=== PATIENT | male | born 1965 | race Asian ===

== ENCOUNTER 2020-09-12 09:22 | Emergency (ER) | payer OTHER, SELFPAY ==
[2020-09-12] VITALS (18 sets, daily range): BP systolic 117–160; BP diastolic 49–89; PULSE 51–88; RESP 16–36; TEMP 37; O2SAT 92–99; BMI 34.9
--- NOTE | 2020-09-12 09:52 | DI.RAD.S_ITS ---
PROCEDURE: XR CHEST 1V INDICATIONS: chest pain TECHNIQUE: One view of the chest was acquired. COMPARISON: None. FINDINGS: Surgical changes and devices: None. Lungs and pleura: Lungs are clear. No pleural effusions or pneumothorax. Mediastinum: Mediastinal contours appear normal. Heart size is normal. Bones and chest wall: No suspicious bony lesions. Overlying soft tissues appear unremarkable. IMPRESSION: No acute cardiopulmonary abnormalities or focal airspace disease. Dictated by: Dario Burton M.D. on 09/12/2020 at 10:14 Approved by: Dario Burton M.D. on 09/12/2020 at 10:15
[2020-09-12 09:59] LABS: INR 1.1 (0.9-1.3); Prothrombin Time 12.4 SECONDS (10.1-12.7)
--- NOTE | 2020-09-12 09:59 | ED_ITS ---
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 Had diaphoresis. No syncope. Patient states pain radiates throughout the whole body. Lasted less than 5 seconds. No dyspnea. No syncope. No numbness tingling or weakness. No recent illness cough cold congestion fever chills. No recent exertional chest pain or dyspnea or weakness. Patient was supposed to take blood pressure medication starting 4 years ago but is not compliant. Patient is adopted. Unknown medical history with family/coronary disease. Patient does not smoke Related Data Home Medications Medication Instructions Recorded Confirmed atenolol 50 mg PO QDAY #0 04/21/17 hydrochlorothiazide 25 mg PO QDAY #0 04/21/17 losartan [Cozaar] 50 mg PO QDAY #0 04/21/17 Allergies Allergy/AdvReac Type Severity Reaction Status Date / Time No Known Drug Allergies Allergy Verified 09/12/20 09:59 Review of Systems Review of Systems Narrative: GENERAL: Denies chills, fatigue, malaise, fever, sweats. HEENT: Denies sinus pain, ear pain, sore throat RESPIRATORY: Denies dyspnea, cough CARDIOVASCULAR: Complains chest pain, denied palpitations, complaints diaphoresis GASTROINTESTINAL: Denies nausea, vomiting, abdominal pain : Denies dysuria, frequency, hematuria MUSCULOSKELETAL: denies muscle or bony pain SKIN: Denies rash, skin lesions NEUROLOGIC: Denies weakness, numbness ROS Unobtainable: All systems reviewed & are unremarkable except as noted in HPI and below Exam Narrative Exam Narrative: GENERAL: in no distress, not toxic not dyspneic HEAD: Normocephalic. EYES: Pupils equal round No scleral icterus. No injection no discharge ENT: Mucous membranes moist. NECK: Trachea midline. CARDIOVASCULAR: Regular rate and rhythm without murmurs RESPIRATORY: Clear to auscultation. Breath sounds equal bilaterally. No wheezes, rales, or rhonchi. GASTROINTESTINAL: Abdomen soft, non-tender EXTREMITIES: No gross deformities. BACK: No flank tenderness. NEURO: AOx4. SKIN: Warm and dry PSYCH: Not anxious, is cooperative Initial Vital Signs Initial Vital Signs: Vital Signs Pulse Rate 65 09/12/20 09:38 Blood Pressure 132/66 09/12/20 09:38 Pulse Oximetry 97 09/12/20 09:38 Course Course Course Narrative: Remains chest pain-free during course of stay Decision to Admit Date: 09/12/20 Decision to Admit time: 11:45 Orders Ordered: Discontinued Medications Aspirin (Aspirin 81 Mg Chew Tab) 324 mg PO NOW ONE Stop: 09/12/20 09:58 Last Admin: 09/12/20 10:29 Dose: 324 mg Documented by: LEO Sodium Chloride (Normal Saline 0.9%) 500 mls @ 1,000 mls/hr IV BOLUS ONE Stop: 09/12/20 13:13 Last Admin: 09/12/20 14:00 Dose: 1,000 mls/hr Documented by: XANDER Reevaluation(s) Reevaluation #1: Reviewed with patient results. At this time unknown source of his chest pain but cannot exclude coronary event. Test so far does not exclude coronary disease. Patient refuses admission to the hospital. Leaving against medical advice reviewed with patient risk and benefits. Please see notes below. Time: 11:46 Reevaluation #2: Patient remains chest pain-free. No elevated blood pressure. Not hypotensive not hypertensive. No distress. No distress. Informed him will need to transfer to [facility]. He understands. Time: 13:44 Consultations Consultation #1: Spoke with radiologist on 1st and 2nd CT scan of the chest and then chest abdomen pelvis. There is type a and type B aortic dissection Time: 14:27 Consultation #2: s/w dr chavez, CT surgeon with , he will call back regarding OR time Time: 14:36 Consultation #3: Spoke with surgeon again. He will accept patient had [facility] emergency Department. Additional Consultation(s): Time 1:43 p.m.. Spoke with radiologist. There is aortic dissection type a started root of the aorta. end point unable to visua lize. Will need formal CT angiogram from chest to pelvis. s/w ER dr langley, she will accept Vital Signs Vital signs: Vital Signs - 8 hr 09/12/20 09:38 09/12/20 09:45 09/12/20 09:46 Temperature 98.6 F Pulse Rate 65 76 83 Respiratory Rate 23 16 Blood Pressure 132/66 132/66 Pulse Oximetry 97 93 97 09/12/20 10:00 09/12/20 10:30 09/12/20 10:45 Temperature Pulse Rate 63 63 53 L Respiratory Rate 16 19 21 Blood Pressure Pulse Oximetry 92 96 96 09/12/20 11:00 09/12/20 11:15 09/12/20 11:30 Temperature Pulse Rate 52 L 51 L 57 L Respiratory Rate 27 H 24 23 Blood Pressure Pulse Oximetry 99 97 09/12/20 11:45 09/12/20 11:53 09/12/20 13:40 Temperature Pulse Rate 52 L 51 L 62 Respiratory Rate 20 23 23 Blood Pressure 117/49 L Pulse Oximetry 98 98 09/12/20 13:41 09/12/20 13:45 09/12/20 13:48 Temperature Pulse Rate 84 77 75 Respiratory Rate 16 28 H 36 H Blood Pressure 137/75 160/75 H Pulse Oximetry 98 99 99 09/12/20 14:00 09/12/20 14:02 Temperature Pulse Rate 86 88 Respiratory Rate 16 17 Blood Pressure 159/89 H Pulse Oximetry 98 99 MDM - Chest Pain Differential Diagnosis Differential diagnosis: Likely pneumothorax, stable angina, unstable angina pectoris, atypical chest pain, st elevation myocardial infarction and chest pain Medical Records Data Attestation: I reviewed the patient's medical records. Lab Data Attestation: I reviewed the patient's lab results. Result diagrams: 09/12/20 09:44 09/12/20 09:44 Labs: Lab Results 09/12/20 09/12/20 09/12/20 Range/Units 09:44 09:44 09:44 WBC 9.6 (4.5-11.0) X10^3/uL RBC 4.98 (4.5-5.9) X10^6/uL Hgb 14.8 (13.5-17.5) g/dL Hct 43.7 (41-53) % MCV 87.7 (80-100) fL MCH 29.8 (26-34) PG MCHC 33.9 (30-36) % RDW 13.4 (11.6-14.8) % Plt Count 179 (150-400) X10^3/uL Neut % (Auto) 49.9 L (50-75) % Lymph % (Auto) 36.2 (25-40) % Tompkins % (Auto) 7.1 (3-14) % Eos % (Auto) 6.0 H (2-4) % Baso % (Auto) 0.8 (0-2) % Neut # (Auto) 4800 (7019-1487) /uL Lymph # (Auto) 3500 (9589-2672) /uL Tompkins # (Auto) 700 (0-900) /uL Eos # (Auto) 600 H (0-450) /uL Baso # (Auto) 100 (0-100) /uL PT 12.4 (10.1-12.7) SECONDS INR 1.1 (0.9-1.3) APTT 32 (26.4-36.2) SECONDS D-Dimer (<230) ng/mL Sodium 140 (137-145) mmol/L Potassium 3.6 (3.4-5.1) mmol/L Chloride 106 (98-107) mmol/L Carbon Dioxide 26 (22-32) mmol/L BUN 17 (9-20) mg/dL Creatinine 0.96 (0.66-1.25) mg/dL Estimated GFR > 60.0 (>60) mL/min BUN/Creatinine Ratio 17.7 (6-22) Glucose 123 H (70-100) mg/dL Calcium 9.0 (8.4-10.2) mg/dL Total Bilirubin 0.9 (0.2-1.3) mg/dL AST 30 (17-59) IU/L ALT 26 (<50) IU/L Alkaline Phosphatase 82 (38-126) U/L Total Creatine Kinase 105 (55-170) U/L CK-MB (CK-2) 1.21 (<2.37) ng/mL CK-MB (CK-2) Rel Index 1.2 L (1.5-5.0) % Troponin I < 0.012 (0.01-0.034) ng/mL Total Protein 7.4 (6.3-8.2) g/dL Albumin 4.4 (3.5-5.0) g/dL Globulin 3.0 (1.7-4.1) g/dL Albumin/Globulin Ratio 1.5 (1.0-2.8) Lipase 79 (23-300) U/L SARS-CoV-2 (PCR) (Negative) 09/12/20 09/12/20 Range/Units 11:20 14:11 WBC (4.5-11.0) X10^3/uL RBC (4.5-5.9) X10^6/uL Hgb (13.5-17.5) g/dL Hct (41-53) % MCV (80-100) fL MCH (26-34) PG MCHC (30-36) % RDW (11.6-14.8) % Plt Count (150-400) X10^3/uL Neut % (Auto) (50-75) % Lymph % (Auto) (25-40) % Tompkins % (Auto) (3-14) % Eos % (Auto) (2-4) % Baso % (Auto) (0-2) % Neut # (Auto) (5491-8856) /uL Lymph # (Auto) (4100-8888) /uL Tompkins # (Auto) (0-900) /uL Eos # (Auto) (0-450) /uL Baso # (Auto) (0-100) /uL PT (10.1-12.7) SECONDS INR (0.9-1.3) APTT (26.4-36.2) SECONDS D-Dimer > 5250 H (<230) ng/mL Sodium (137-145) mmol/L Potassium (3.4-5.1) mmol/L Chloride (98-107) mmol/L Carbon Dioxide (22-32) mmol/L BUN (9-20) mg/dL Creatinine (0.66-1.25) mg/dL Estimated GFR (>60) mL/min BUN/Creatinine Ratio (6-22) Glucose (70-100) mg/dL Calcium (8.4-10.2) mg/dL Total Bilirubin (0.2-1.3) mg/dL AST (17-59) IU/L ALT (<50) IU/L Alkaline Phosphatase (38-126) U/L Total Creatine Kinase (55-170) U/L CK-MB (CK-2) (<2.37) ng/mL CK-MB (CK-2) Rel Index (1.5-5.0) % Troponin I (0.01-0.034) ng/mL Total Protein (6.3-8.2) g/dL Albumin (3.5-5.0) g/dL Globulin (1.7-4.1) g/dL Albumin/Globulin Ratio (1.0-2.8) Lipase (23-300) U/L SARS-CoV-2 (PCR) Negative (Negative) Imaging Data Chest x-ray: Radiologist's Impression: [address] [id number] ReportSigned Patient: Goyo Smith EMR#: [id number]: 1965Acct:[id number]/Sex: 55 / MDate of Service: 09/12/20Loc: EDAccession Number: [id number] Procedure: XR chest 1V Ordering Provider: Chi Butler MD PROCEDURE: XR CHEST 1V INDICATIONS: chest pain TECHNIQUE: One view of the chest was acquired. COMPARISON: None. FINDINGS: Surgical changes and devices: None. Lungs and pleura: Lungs are clear. No pleural effusions or pneumothorax. Mediastinum: Mediastinal contours appear normal. Heart size is normal. Bones and chest wall: No suspicious bony lesions. Overlying soft tissues appear unremarkable. IMPRESSION: No acute cardiopulmonary abnormalities or focal airspace disease. Dictated by: Dario Burton M.D. on 09/12/2020 at 10:14 Approved by: Dario Burton M.D. on 09/12/2020 at 10:15 CT scan - chest: Radiologist's Impression: [address] [id number] Scan ReportSigned Patient: Goyo Smith EMR#: [id number]: 1965Acct:[id number]/Sex: 55 / MDate of Service: 09/12/20Loc: EDAccession Number: [id number] Procedure: CT angio chest PE protocol Ordering Provider: Chi Butler MD PROCEDURE: CT ANGIO CHEST PE PROTOCOL INDICATIONS: Chest pain TECHNIQUE: After the administration of intravenous contrast, 2 mm thick sections acquired from the pulmonary apices to the posterior costophrenic angles. 3-dimensional maximum intensity projection (MIP) coronal and sagittal reformats were then acquired through the thorax. For radiation dose reduction, the following was used: automated exposure control, adjustment of mA and/or kV according to patient size. COMPARISON: [facility], CR, XR CHEST 1V, 09/12/2020, 9:54. FINDINGS: Image quality: Excellent. Pulmonary arteries: Pulmonary arteries are normal in size, and demonstrate no intraluminal filling defects to suggest central pulmonary embolism. Lungs and pleura: There are nodular ground-glass infiltrates in the right upper lobe, right middle lobe and right lower lobe.. No pleural effusions or pneumothorax. Central and peripheral airways are patent. Mediastinum: The thoracic aorta is aneurysmal. The aortic root measures 4.4 cm in diameter. The ascending aorta measures up to 4.7 cm in diameter. The proximal arch measures 4.2 cm. The distal arch measures 3.5 cm. The descending thoracic aorta measures 3 point cm, tapering to 2.5 cm at the aortic hiatus. There is aortic dissection involving the ascending thoracic aorta2 extending to the aortic arch and descending aorta. There is a intimal flap in the distal arch and descending aorta. Heart size is normal. There [id number] coronary artery calcification. There is trace pericardial effusion. No mediastinal or hilar adenopathy. Esophagus is normal in caliber. Small hiatal hernia. Mild concentric thickening at the gastric esophageal junction. Bones and chest wall: No suspicious bony lesions. Ribs and thoracic spine appear intact throughout. Thyroid gland is normal. No axillary or supraclavicular adenopathy. Abdomen: Visualized upper abdominal solid organs appear normal in the early arterial phase of enhancement. There are multiple left renal cysts. IMPRESSION: 1. No evidence for pulmonary embolism. 2. Aneurysmal thoracic aorta. There is type A aortic dissection involving the aortic root, ascending aorta, the aortic arch and descending aorta. The distal dissection is below the field of view. The aorta is not well opacified (optimal pulmonary artery opacification was the goal of the study). To further evaluated dissection, CTA chest and abdomen using dissection protocol is recommended. 3. Trace pericardial effusion. 4. [id number] coronary artery calcification. 5. Nodular ground-glass infiltrates in right lung, consistent with pneumonia. Please correlate with COVID-19 status. 6. Small hiatal hernia. There is concentric thickening at the gastroesophageal junction. Esophagram or upper endoscopy is recommended for follow-up evaluation. The result was discussed with Dr. Butler. Dictated by: Jada Wood M.D. on 09/12/2020 at 13:27 Approved by: Jada Wood M.D. on 09/12/2020 at 13:50 CT angiogram chest abdomen pelvis: Radiologist's Impression: [address] [id number] Scan ReportSigned Patient: Goyo Smtih EMR#: [id number]: 1965Acct:[id number]/Sex: 55 / MDate of Service: 09/12/20Loc: EDAccession Number: [id number] Procedure: CT angio chest abdomen pelvis Ordering Provider: Chi Butler MD PROCEDURE: CT ANGIO CHEST ABDOMEN PELVIS INDICATIONS: Aortic dissection TECHNIQUE: Precontrast 5 mm thick sections acquired from the lung apices to the iliac crests. After the administration of intravenous contrast, 2.5 mm thick sections again acquired from the lung apices to the iliac crests. Maximum intensity projection (MIP) oblique sagittal and coronal reformats were then acquired. For radiation dose reduction, the following was used: automated exposure control. COMPARISON: [facility], CT, CT ANGIO CHEST PE PROTOCOL, 09/12/2020, 13:08. FINDINGS: Image quality: Excellent. AORTA: Massive aortic dissection extending from the aortic root, to the right common iliac artery is seen. Contrast opacification of the true and false lumen is noted. No definite periaortic hemorrhage is identified. Scattered displaced intimal vascular calcifications are noted. The celiac axis appears contrast opacified although intimal flap is present in keeping with additional dissection. The superior mesenteric artery appears patent. Inferior mesenteric artery appears grossly patent.. Both of the renal arteries appear grossly patent. Aneurysmal dilatation of the right common iliac artery measuring approximately 2 cm. Aneurysmal ectasia of the distal abdominal aorta just above the bifurcation measuring 2.4 cm. CHEST: Lungs and pleura: No acute consolidation. No pleural effusions or pneumothora x. Airway thickening in keeping with nonspecific bronchitis and/or reactive airways disease. Mediastinum: Heart size is normal. Coronary artery calcifications are present. No pericardial effusion. No mediastinal or hilar adenopathy by size criteria. Central pulmonary arteries are normal in size. Esophagus is normal in caliber. No hiatal hernias. Bones and chest wall: No axillary adenopathy by size criteria. Thyroid gland negative . No suspicious bony lesions. No vertebral body compression fractures. ABDOMEN: Solid organs: Subcentimeter hepatic foci are statistically cysts or hemangiomas, although technically too small to characterize accurately and therefore nons pecific.. Gallbladder negative . Biliary system is non dilated. Pancreas enhances normally. Spleen is normal in size and enhancement. No adrenal nodules. Both kidneys are normal in size and enhancement, without hydronephrosis. Simple appearing left renal cysts. Peritoneum and bowel: No free fluid or air. Bowel loops are normal in caliber and wall thickness. Nodes and vessels: No retroperitoneal or mesenteric adenopathy by size criteria. Inferior vena cava is normal in morphology. There is intraluminal filling defects involving the portal vein, superior mesenteric vein, with eccentric location raising the possibility of partially occlusive thrombus versus flow related artifact. Miscellaneous: No ventral hernias. PELVIS: Genitourinary: Bladder wall thickness is normal. Small fat containing left inguinal hernia. No ventral hernias. Bones: Age indeterminate L2 compression fracture. IMPRESSION: Massive aortic dissection involving the thoracic and abdominal/pelvic aorta extending from the aortic root, to the right common iliac artery. Aneurysmal dilatation of the right common iliac artery, and ectatic appearance of the distal aorta just above the bifurcation measuring 2.4 cm. There is also extension of intimal flap into the proximal celiac artery, and right internal iliac artery. No definite extraluminal periaortic hemorrhage identified. Intraluminal apparent filling defect involving the portal vein, superior mesenteric vein raising possibility of partially occlusive thrombus versus flow related artifact. Additional chronic and incidental findings as above. Critical findings were immediately personally telephoned and discussed with Dr. Butler in the emergency department at 1422 hours on 09/12/20. Dictated by: Timo Claros M.D. on 09/12/2020 at 14:07 Approved by: Timo Claros M.D. on 09/12/2020 at 14:27 ECG Data Attestation: I personally reviewed and interpreted this ECG as follows: Interpretation: Normal sinus rhythm rate 84, left axis deviation, incomplete right bundle-branch block. Age indeterminate inferior infarct MDM Narrative Medical decision making narrative: Addendum September 13, 2020 12:10 p.m.. Completion of chart, accessing medical records. Implored with patient to be admitted for stress test and observation. D dimer still pending. He did not want to wait for it. He is awake alert oriented x4. No chest pain no abdominal pain. Reviewed with him risk of heart attack per minute injury with the against medical advice. Benefits include observation and stress test. Aspirin was given on arrival for chest pain protocol. There was no no chest pain or or back pain or or neuro complaints or abdominal pain. Patient was leaving against medical advice and aspirin given prophylactically as patient did not want to stay and given for cardio protection. Pt later changed his mind that he would wait for D dimer at time of d/c and presenting papers for d/c AMA. Patient did stay for CT scan imaging and did agree for transfer and understands severity of findings on CT scan imaging. Critical Care Time Critical Care Time Critical Care Time: Yes Total Critical Care Time: 30 Attestation: Critical Care Time 30 minutes: Critical care time is separate from other billable procedures. This critical care time includes consultation with family and other consulting doctors, review of records, and interpretation of data from labs, EKGs, imaging, etc. Discharge Plan Departure Patient Disposition: [facility] Clinical Impression: Aortic arch dissection Activity Restrictions/Additional Instructions: Return immediately if you change of mind to be admitted. Call provided clinic list to obtain a family doctor. Prescriptions: No Action losartan [Cozaar] 50 MG tablet 50 mg PO QDAY Qty: 0 RF: 0 atenolol 25 MG tablet 50 mg PO QDAY Qty: 0 RF: 0 hydrochlorothiazide 25 MG tablet 25 mg PO QDAY Qty: 0 RF: 0 Referrals: [facility] Resources [Outside] Stand Alone Forms: Against Medical Advice
[2020-09-12 10:02] LABS: Add Manual Diff / Slide Review NO; Basophils Absolute Auto 100 /uL (0-100); Basophils Percent Auto 0.8 % (0-2); Eosinophils Absolute Auto 600 /uL (0-450); Hematocrit 43.7 % (41-53); Hemoglobin 14.8 g/dL (13.5-17.5); Lymphocytes Absolute Auto 3500 /uL (1100-4500); Lymphocytes Percent Auto 36.2 % (25-40); Mean Corpuscular HGB Conc 33.9 % (30-36); Mean Corpuscular Hemoglobin 29.8 PG (26-34); Mean Corpuscular Volume 87.7 fL (80-100); Monocytes Absolute Auto 700 /uL (0-900); Monocytes Percent Auto 7.1 % (3-14); Neutrophils Absolute Auto 4800 /uL (1500-7000); Neutrophils Percent Auto 49.9 % (50-75); PTT Partial Thromboplastin Tim 32 SECONDS (26.4-36.2); Platelet Count 179 X10^3/uL (150-400); Red Blood Cell Count 4.98 X10^6/uL (4.5-5.9); Red Cell Distribution Width 13.4 % (11.6-14.8); White Blood Cell Count 9.6 X10^3/uL (4.5-11.0)
[2020-09-12 10:17] LABS: Alanine Aminotransferase 26 IU/L (<50); Albumin 4.4 g/dL (3.5-5.0); Albumin Globulin Ratio 1.5 (1.0-2.8); Alkaline Phosphatase 82 U/L (38-126); Aspartate Aminotransferase 30 IU/L (17-59); BUN Creatinine Ratio 17.7 (6-22); Bilirubin Total 0.9 mg/dL (0.2-1.3); Blood Urea Nitrogen 17 mg/dL (9-20); Carbon Dioxide 26 mmol/L (22-32); Chloride 106 mmol/L (98-107); Creatine Kinase 105 U/L (55-170); Estimated Glomerular Filt Rate > 60.0 mL/min (>60); Glucose 123 mg/dL (70-100); HEMOLYSIS 16 (0-50); Lipase 79 U/L (23-300); Potassium 3.6 mmol/L (3.4-5.1); Sodium 140 mmol/L (137-145); Total Protein 7.4 g/dL (6.3-8.2)
[2020-09-12 10:28] LABS: Troponin I < 0.012 ng/mL (0.01-0.034)
[2020-09-12] MEDS: ASPIRIN 81 MG CHEW TAB 324 MG PO (10:29)
[2020-09-12 10:33] LABS: CKMB % Relative Index 1.2 % (1.5-5.0); Creatine Kinase MB 1.21 ng/mL (<2.37)
--- NOTE | 2020-09-12 11:16 | PC.NURSE ---
lab unable to get blood from peripheral vein. Draw taken from IV, NS flush, pulled and wasted 5ml, provided lab with 3ml and flushed IV with NS.
[2020-09-12 12:41] LABS: D Dimer > 5250 ng/mL (<230)
--- NOTE | 2020-09-12 12:44 | DI.CT.S_ITS ---
PROCEDURE: CT ANGIO CHEST PE PROTOCOL INDICATIONS: Chest pain TECHNIQUE: After the administration of intravenous contrast, 2 mm thick sections acquired from the pulmonary apices to the posterior costophrenic angles. 3-dimensional maximum intensity projection (MIP) coronal and sagittal reformats were then acquired through the thorax. For radiation dose reduction, the following was used: automated exposure control, adjustment of mA and/or kV according to patient size. COMPARISON: [facility], CR, XR CHEST 1V, 09/12/2020, 9:54. FINDINGS: Image quality: Excellent. Pulmonary arteries: Pulmonary arteries are normal in size, and demonstrate no intraluminal filling defects to suggest central pulmonary embolism. Lungs and pleura: There are nodular ground-glass infiltrates in the right upper lobe, right middle lobe and right lower lobe.. No pleural effusions or pneumothorax. Central and peripheral airways are patent. Mediastinum: The thoracic aorta is aneurysmal. The aortic root measures 4.4 cm in diameter. The ascending aorta measures up to 4.7 cm in diameter. The proximal arch measures 4.2 cm. The distal arch measures 3.5 cm. The descending thoracic aorta measures 3 point cm, tapering to 2.5 cm at the aortic hiatus. There is aortic dissection involving the ascending thoracic aorta2 extending to the aortic arch and descending aorta. There is a intimal flap in the distal arch and descending aorta. Heart size is normal. There [id number] coronary artery calcification. There is trace pericardial effusion. No mediastinal or hilar adenopathy. Esophagus is normal in caliber. Small hiatal hernia. Mild concentric thickening at the gastric esophageal junction. Bones and chest wall: No suspicious bony lesions. Ribs and thoracic spine appear intact throughout. Thyroid gland is normal. No axillary or supraclavicular adenopathy. Abdomen: Visualized upper abdominal solid organs appear normal in the early arterial phase of enhancement. There are multiple left renal cysts. IMPRESSION: 1. No evidence for pulmonary embolism. 2. Aneurysmal thoracic aorta. There is type A aortic dissection involving the aortic root, ascending aorta, the aortic arch and descending aorta. The distal dissection is below the field of view. The aorta is not well opacified (optimal pulmonary artery opacification was the goal of the study). To further evaluated dissection, CTA chest and abdomen using dissection protocol is recommended. 3. Trace pericardial effusion. 4. [id number] coronary artery calcification. 5. Nodular ground-glass infiltrates in right lung, consistent with pneumonia. Please correlate with COVID-19 status. 6. Small hiatal hernia. There is concentric thickening at the gastroesophageal junction. Esophagram or upper endoscopy is recommended for follow-up evaluation. The result was discussed with Dr. Butler. Dictated by: Jada Wood M.D. on 09/12/2020 at 13:27 Approved by: Jada Wood M.D. on 09/12/2020 at 13:50
--- NOTE | 2020-09-12 13:39 | DI.CT.S_ITS ---
PROCEDURE: CT ANGIO CHEST ABDOMEN PELVIS INDICATIONS: Aortic dissection TECHNIQUE: Precontrast 5 mm thick sections acquired from the lung apices to the iliac crests. After the administration of intravenous contrast, 2.5 mm thick sections again acquired from the lung apices to the iliac crests. Maximum intensity projection (MIP) oblique sagittal and coronal reformats were then acquired. For radiation dose reduction, the following was used: automated exposure control. COMPARISON: [facility], CT, CT ANGIO CHEST PE PROTOCOL, 09/12/2020, 13:08. FINDINGS: Image quality: Excellent. AORTA: Massive aortic dissection extending from the aortic root, to the right common iliac artery is seen. Contrast opacification of the true and false lumen is noted. No definite periaortic hemorrhage is identified. Scattered displaced intimal vascular calcifications are noted. The celiac axis appears contrast opacified although intimal flap is present in keeping with additional dissection. The superior mesenteric artery appears patent. Inferior mesenteric artery appears grossly patent.. Both of the renal arteries appear grossly patent. Aneurysmal dilatation of the right common iliac artery measuring approximately 2 cm. Aneurysmal ectasia of the distal abdominal aorta just above the bifurcation measuring 2.4 cm. CHEST: Lungs and pleura: No acute consolidation. No pleural effusions or pneumothorax. Airway thickening in keeping with nonspecific bronchitis and/or reactive airways disease. Mediastinum: Heart size is normal. Coronary artery calcifications are present. No pericardial effusion. No mediastinal or hilar adenopathy by size criteria. Central pulmonary arteries are normal in size. Esophagus is normal in caliber. No hiatal hernias. Bones and chest wall: No axillary adenopathy by size criteria. Thyroid gland negative . No suspicious bony lesions. No vertebral body compression fractures. ABDOMEN: Solid organs: Subcentimeter hepatic foci are statistically cysts or hemangiomas, although technically too small to characterize accurately and therefore nonspecific.. Gallbladder negative . Biliary system is non dilated. Pancreas enhances normally. Spleen is normal in size and enhancement. No adrenal nodules. Both kidneys are normal in size and enhancement, without hydronephrosis. Simple appearing left renal cysts. Peritoneum and bowel: No free fluid or air. Bowel loops are normal in caliber and wall thickness. Nodes and vessels: No retroperitoneal or mesenteric adenopathy by size criteria. Inferior vena cava is normal in morphology. There is intraluminal filling defects involving the portal vein, superior mesenteric vein, with eccentric location raising the possibility of partially occlusive thrombus versus flow related artifact. Miscellaneous: No ventral hernias. PELVIS: Genitourinary: Bladder wall thickness is normal. Small fat containing left inguinal hernia. No ventral hernias. Bones: Age indeterminate L2 compression fracture. IMPRESSION: Massive aortic dissection involving the thoracic and abdominal/pelvic aorta extending from the aortic root, to the right common iliac artery. Aneurysmal dilatation of the right common iliac artery, and ectatic appearance of the distal aorta just above the bifurcation measuring 2.4 cm. There is also extension of intimal flap into the proximal celiac artery, and right internal iliac artery. No definite extraluminal periaortic hemorrhage identified. Intraluminal apparent filling defect involving the portal vein, superior mesenteric vein raising possibility of partially occlusive thrombus versus flow related artifact. Additional chronic and incidental findings as above. Critical findings were immediately personally telephoned and discussed with Dr. Butler in the emergency department at 1422 hours on 09/12/20. Dictated by: Timo Claros M.D. on 09/12/2020 at 14:07 Approved by: Timo Claros M.D. on 09/12/2020 at 14:27
[2020-09-12] MEDS: SODIUM CHLORIDE 0.9% 500 ML 1000 ML IV (14:00)
[2020-09-12 14:48] LABS: COVID19 -Nasal RAPID Negative (Negative)
== END 2020-09-12 14:45 | disposition short-term general hospital (02) ==
PROVIDERS: Emergency Provider Emergency Medicine
DX: I71.01 Dissection of thoracic aorta (principal); R61 Generalized hyperhidrosis; Z20.822 Contact with and (suspected) exposure to COVID-19
CPT/HCPCS: 36415; 71045; 71275; 74174; 80053; 82550; 82553; 83690; 84484; 85025; 85379; 85610; 85730; 87635; 93005; 99284; 99291; 99292; C9803

== ENCOUNTER → 2020-11-07 11:00 | Outpatient (CLI) | payer OTHER, SELFPAY ==
[2020-11-07 12:06] LABS: Hemoglobin A1C% w Est Avg Glu 5.1 % (4.0-6.0)
[2020-11-07 12:24] LABS: BUN Creatinine Ratio 26.9 (6-22); Blood Urea Nitrogen 21 mg/dL (9-20); Calcium 9.8 mg/dL (8.4-10.2); Carbon Dioxide 28 mmol/L (22-32); Chloride 102 mmol/L (98-107); Cholesterol 206 mg/dL (140-199); Estimated Glomerular Filt Rate > 60.0 mL/min (>60); Glucose 96 mg/dL (70-100); HDL Cholesterol 38 mg/dL (40-60); HEMOLYSIS < 15 (0-50); LDL Cholesterol Calculated 138 mg/dL (<100); Potassium 4.6 mmol/L (3.4-5.1); Sodium 139 mmol/L (137-145); Triglycerides 152 mg/dL (35-150)
== END ==
PROVIDERS: PCP Internal Medicine; Referring Provider Internal Medicine Interventional Cardiology; Visit Provider Internal Medicine Interventional Cardiology
DX: I10 Essential (primary) hypertension (principal); Z68.36 Body mass index [BMI] 36.0-36.9, adult
CPT/HCPCS: 36415; 80048; 80061; 83036

== ENCOUNTER → 2020-12-15 09:44 | Outpatient (CLI) | payer OTHER, SELFPAY ==
[2020-12-15 10:39] LABS: Hemoglobin A1C% w Est Avg Glu 5.4 % (4.0-6.0)
[2020-12-15 10:43] LABS: Cholesterol 141 mg/dL (140-199); HDL Cholesterol 35 mg/dL (40-60); LDL Cholesterol Calculated 78 mg/dL (<100); Triglycerides 140 mg/dL (35-150)
== END ==
PROVIDERS: PCP Internal Medicine; Referring Provider Internal Medicine Interventional Cardiology; Visit Provider Internal Medicine Interventional Cardiology
DX: Z68.36 Body mass index [BMI] 36.0-36.9, adult (principal)
CPT/HCPCS: 36415; 80061; 83036

== ENCOUNTER → 2021-05-11 08:28 | Outpatient (CLI) | payer OTHER, SELFPAY ==
[2021-05-11 09:04] LABS: BUN Creatinine Ratio 13.4 (6-22); Blood Urea Nitrogen 13 mg/dL (9-20); Calcium 9.1 mg/dL (8.4-10.2); Carbon Dioxide 30 mmol/L (22-32); Chloride 103 mmol/L (98-107); Cholesterol 116 mg/dL (140-199); Estimated Glomerular Filt Rate > 60.0 mL/min (>60); Glucose 103 mg/dL (70-100); HDL Cholesterol 26 mg/dL (40-60); HEMOLYSIS < 15 (0-50); LDL Cholesterol Calculated 55 mg/dL (<100); Potassium 4.1 mmol/L (3.4-5.1); Sodium 140 mmol/L (137-145); Triglycerides 174 mg/dL (35-150)
== END ==
PROVIDERS: PCP Internal Medicine; Referring Provider Internal Medicine Interventional Cardiology; Visit Provider Internal Medicine Interventional Cardiology
DX: I10 Essential (primary) hypertension (principal); I77.811 Abdominal aortic ectasia; G47.33 Obstructive sleep apnea (adult) (pediatric); Z78.9 Other specified health status
CPT/HCPCS: 36415; 80048; 80061

== ENCOUNTER → 2021-07-20 10:11 | Outpatient (CLI) | payer OTHER, SELFPAY ==
[2021-07-20 13:09] LABS: BUN Creatinine Ratio 18.8 (6-22); Blood Urea Nitrogen 18 mg/dL (9-20); Calcium 9.5 mg/dL (8.4-10.2); Carbon Dioxide 31 mmol/L (22-32); Chloride 104 mmol/L (98-107); Estimated Glomerular Filt Rate > 60.0 mL/min (>60); Glucose 95 mg/dL (70-100); HEMOLYSIS < 15 (0-50); Potassium 4.1 mmol/L (3.4-5.1); Sodium 141 mmol/L (137-145)
== END ==
PROVIDERS: PCP Internal Medicine; Referring Provider Internal Medicine Interventional Cardiology; Visit Provider Internal Medicine Interventional Cardiology
DX: I10 Essential (primary) hypertension (principal)
CPT/HCPCS: 36415; 80048

== ENCOUNTER → 2021-08-16 08:05 | Outpatient (CLI) | payer OTHER, SELFPAY ==
--- NOTE | 2021-08-16 08:06 | DI.US.S_ITS ---
PROCEDURE: US ABDOMEN LIMITED INDICATIONS: LIVER CYSTS ON CTA TECHNIQUE: Real-time scanning was performed of the abdominal and retroperitoneal organs, with image documentation. COMPARISON: [facility], CT, CT ANGIO CHEST ABDOMEN PELVIS, 09/12/2020, 13:41. FINDINGS: Liver: Normal size. Increased echogenicity, compatible with hepatic steatosis. Hypoechoic lesion in the left hepatic lobe, measuring up to 1.1 cm, most consistent with a cyst. An additional hypoechoic lesion is seen with echogenic focus, likely representing a hemangioma, measuring up to 7 mm. A 9.6 mm echogenic focus is seen in the anterior aspect of liver, compatible with a hemangioma. Gallbladder: Within normal limits. No shadowing gallstones. No gallbladder mass or polyp is appreciated. Biliary ducts: Intrahepatic bile ducts are non-dilated. Extrahepatic bile duct caliber measures 6.2 mm. Normal is 6-7 mm or less in diameter, or 10 mm or less post-cholecystectomy. Pancreas: Visualized portions of the pancreas are sonographically normal. Miscellaneous: No free abdominal fluid. IMPRESSION: No significant abnormality. Dictated by: Sedrick Wade M.D. on 08/16/2021 at 9:35 Approved by: Sedrick Wade M.D. on 08/16/2021 at 9:46
== END ==
PROVIDERS: PCP Internal Medicine; Referring Provider Internal Medicine; Visit Provider Internal Medicine
DX: Q44.1 Other congenital malformations of gallbladder (principal); K76.89 Other specified diseases of liver
CPT/HCPCS: 76705

== ENCOUNTER → 2021-09-13 08:38 | Outpatient (CLI) | payer OTHER, SELFPAY ==
[2021-09-13 10:32] LABS: BUN Creatinine Ratio 14.8 (6-22); Blood Urea Nitrogen 12 mg/dL (9-20); Calcium 9.3 mg/dL (8.4-10.2); Carbon Dioxide 28 mmol/L (22-32); Chloride 106 mmol/L (98-107); Cholesterol 140 mg/dL (140-199); Estimated Glomerular Filt Rate > 60.0 mL/min (>60); Glucose 97 mg/dL (70-100); HDL Cholesterol 29 mg/dL (40-60); HEMOLYSIS < 15 (0-50); LDL Cholesterol Calculated 79 mg/dL (<100); Potassium 4.3 mmol/L (3.4-5.1); Sodium 143 mmol/L (137-145); Triglycerides 159 mg/dL (35-150)
== END ==
PROVIDERS: PCP Internal Medicine; Referring Provider Internal Medicine Interventional Cardiology; Visit Provider Internal Medicine Interventional Cardiology
DX: I10 Essential (primary) hypertension (principal); Z68.36 Body mass index [BMI] 36.0-36.9, adult
CPT/HCPCS: 36415; 80048; 80061

== ENCOUNTER → 2021-11-30 10:27 | Outpatient (CLI) | payer OTHER, MEDICAID, SELFPAY ==
[2021-11-30 12:19] LABS: BUN Creatinine Ratio 13.1 (6-22); Blood Urea Nitrogen 11 mg/dL (9-20); Calcium 9.1 mg/dL (8.4-10.2); Carbon Dioxide 28 mmol/L (22-32); Chloride 104 mmol/L (98-107); Cholesterol 138 mg/dL (140-199); Estimated Glomerular Filt Rate > 60 mL/min (>60); Glucose 103 mg/dL (70-100); HDL Cholesterol 28 mg/dL (40-60); HEMOLYSIS < 15 (0-50); LDL Cholesterol Calculated 78 mg/dL (<100); Potassium 3.8 mmol/L (3.4-5.1); Sodium 139 mmol/L (137-145); Triglycerides 161 mg/dL (35-150)
== END ==
PROVIDERS: PCP Internal Medicine; Referring Provider Internal Medicine Interventional Cardiology; Visit Provider Internal Medicine Interventional Cardiology
DX: E78.2 Mixed hyperlipidemia (principal)
CPT/HCPCS: 36415; 80048; 80061

== ENCOUNTER → 2022-01-09 08:29 | Outpatient (CLI) | payer OTHER, MEDICAID, SELFPAY ==
[2022-01-09 09:05] LABS: Alanine Aminotransferase 20 IU/L (<50); Albumin 4.5 g/dL (3.5-5.0); Albumin Globulin Ratio 1.5 (1.0-2.8); Alkaline Phosphatase 76 U/L (38-126); Aspartate Aminotransferase 24 IU/L (17-59); BUN Creatinine Ratio 21.8 (6-22); Bilirubin Total 0.8 mg/dL (0.2-1.3); Blood Urea Nitrogen 19 mg/dL (9-20); Carbon Dioxide 30 mmol/L (22-32); Chloride 103 mmol/L (98-107); Estimated Glomerular Filt Rate > 60 mL/min (>60); Glucose 101 mg/dL (70-100); HEMOLYSIS < 15 (0-50); Potassium 4.2 mmol/L (3.4-5.1); Sodium 140 mmol/L (137-145); Total Protein 7.5 g/dL (6.3-8.2)
== END ==
PROVIDERS: PCP Internal Medicine; Referring Provider Internal Medicine Interventional Cardiology; Visit Provider Internal Medicine Interventional Cardiology
DX: Z98.890 Other specified postprocedural states (principal); I10 Essential (primary) hypertension
CPT/HCPCS: 36415; 80053

== ENCOUNTER → 2022-08-26 09:48 | Outpatient (CLI) | payer OTHER, MEDICAID, SELFPAY ==
[2022-08-26 11:09] LABS: BUN Creatinine Ratio 16.3 (6-22); Blood Urea Nitrogen 16 mg/dL (9-20); Calcium 9.1 mg/dL (8.4-10.2); Carbon Dioxide 30 mmol/L (22-32); Chloride 102 mmol/L (98-107); Cholesterol 122 mg/dL (140-199); Estimated Glomerular Filt Rate > 60 mL/min (>60); Glucose 102 mg/dL (70-100); HDL Cholesterol 27 mg/dL (40-60); HEMOLYSIS < 15 (0-50); LDL Cholesterol Calculated 65 mg/dL (<100); Potassium 4.1 mmol/L (3.4-5.1); Sodium 142 mmol/L (137-145); Triglycerides 152 mg/dL (35-150)
== END ==
PROVIDERS: PCP Internal Medicine; Referring Provider Internal Medicine Interventional Cardiology; Visit Provider Internal Medicine Interventional Cardiology
DX: E78.2 Mixed hyperlipidemia (principal)
CPT/HCPCS: 36415; 80048; 80061

== ENCOUNTER → 2023-03-19 09:24 | Outpatient (CLI) | payer OTHER, MEDICAID, SELFPAY ==
[2023-03-19 11:17] LABS: Hemoglobin A1C% w Est Avg Glu 5.7 % (4.0-6.0)
[2023-03-19 11:31] LABS: Alanine Aminotransferase 23 IU/L (<50); Albumin Globulin Ratio 1.4 (1.0-2.8); Alkaline Phosphatase 78 U/L (38-126); Aspartate Aminotransferase 22 IU/L (17-59); BUN Creatinine Ratio 16.7 (6-22); Bilirubin Total 0.5 mg/dL (0.2-1.3); Blood Urea Nitrogen 18 mg/dL (9-20); Calcium 8.9 mg/dL (8.4-10.2); Carbon Dioxide 27 mmol/L (22-32); Chloride 102 mmol/L (98-107); Cholesterol 121 mg/dL (140-199); Estimated Glomerular Filt Rate > 60 mL/min (>60); Globulin 2.9 g/dL (1.7-4.1); Glucose 102 mg/dL (70-100); HDL Cholesterol 25 mg/dL (40-60); HEMOLYSIS < 15 (0-50); LDL Cholesterol Calculated 53 mg/dL (<100); Sodium 138 mmol/L (137-145); Total Protein 6.9 g/dL (6.3-8.2); Triglycerides 216 mg/dL (35-150)
== END ==
PROVIDERS: PCP Internal Medicine; Referring Provider Internal Medicine Interventional Cardiology; Visit Provider Internal Medicine Interventional Cardiology
DX: I77.811 Abdominal aortic ectasia (principal); E78.2 Mixed hyperlipidemia; I10 Essential (primary) hypertension; Z68.36 Body mass index [BMI] 36.0-36.9, adult; Z98.890 Other specified postprocedural states
CPT/HCPCS: 36415; 80053; 80061; 83036

== ENCOUNTER → 2023-07-22 13:14 | Outpatient (CLI) | payer OTHER, MEDICAID, SELFPAY ==
[2023-07-22 14:41] LABS: Blood Urea Nitrogen 12 mg/dL (9-20); Calcium 10.1 mg/dL (8.4-10.2); Carbon Dioxide 31 mmol/L (22-32); Chloride 101 mmol/L (98-107); Estimated Glomerular Filt Rate > 60 mL/min (>60); Glucose 90 mg/dL (70-100); HEMOLYSIS < 15 (0-50); Potassium 4.2 mmol/L (3.4-5.1); Sodium 139 mmol/L (137-145)
== END ==
PROVIDERS: PCP Internal Medicine; Referring Provider Physician Assistant; Visit Provider Physician Assistant
DX: Z98.890 Other specified postprocedural states (principal)
CPT/HCPCS: 36415; 80048

== ENCOUNTER → 2023-11-14 09:28 | Outpatient (CLI) | payer OTHER, MEDICAID, SELFPAY ==
[2023-11-14 11:25] LABS: Hemoglobin A1C% w Est Avg Glu 6.3 % (4.0-6.0)
[2023-11-14 11:30] LABS: Alanine Aminotransferase 37 IU/L (<50); Albumin 4.4 g/dL (3.5-5.0); Albumin Globulin Ratio 1.5 (1.0-2.8); Alkaline Phosphatase 76 U/L (38-126); Aspartate Aminotransferase 36 IU/L (17-59); BUN Creatinine Ratio 12.4 (6-22); Bilirubin Total 0.9 mg/dL (0.2-1.3); Blood Urea Nitrogen 11 mg/dL (9-20); Calcium 9.1 mg/dL (8.4-10.2); Carbon Dioxide 27 mmol/L (22-32); Chloride 105 mmol/L (98-107); Cholesterol 114 mg/dL (140-199); Estimated Glomerular Filt Rate > 60 mL/min (>60); Glucose 100 mg/dL (70-100); HDL Cholesterol 25 mg/dL (40-60); HEMOLYSIS < 15 (0-50); LDL Cholesterol Calculated 46 mg/dL (<100); Potassium 3.8 mmol/L (3.4-5.1); Sodium 138 mmol/L (137-145); Total Protein 7.4 g/dL (6.3-8.2); Triglycerides 216 mg/dL (35-150)
== END ==
PROVIDERS: PCP Internal Medicine; Referring Provider Internal Medicine Interventional Cardiology; Visit Provider Internal Medicine Interventional Cardiology
DX: I10 Essential (primary) hypertension (principal); E78.2 Mixed hyperlipidemia; I77.811 Abdominal aortic ectasia; Z98.890 Other specified postprocedural states; Z68.36 Body mass index [BMI] 36.0-36.9, adult
CPT/HCPCS: 36415; 80053; 80061; 83036

== ENCOUNTER → 2024-02-06 14:40 | Outpatient (CLI) | payer OTHER, MEDICAID, SELFPAY ==
[2024-02-06 16:06] LABS: Prostate Specific Antigen Scrn 5.06 ng/mL (0.1-4.0)
[2024-02-08 08:08] LABS: PSA, Total 5.2 ng/mL (0.0-4.0)
[2024-02-09 13:09] LABS: Var-Zoster Immunity Screen 3291 index (Immune >165)
== END ==
PROVIDERS: PCP Internal Medicine; Referring Provider Internal Medicine; Visit Provider Internal Medicine
DX: Z12.5 Encounter for screening for malignant neoplasm of prostate (principal); R21 Rash and other nonspecific skin eruption; R97.20 Elevated prostate specific antigen [PSA]
CPT/HCPCS: 36415; 84153; 84154; 86787; G0103

== ENCOUNTER 2024-05-06 11:53 | Day surgery (SDC) | payer OTHER, MEDICAID, SELFPAY ==
--- NOTE | 2024-05-06 | PATH_ITS ---
[facility] Accession Number: [id number] No. of containers..03 Tissue . 01 Material submitted: . PART A: colon - SIGMOID POLYP @ 40 PART B: colon - SIGMOID POLYP @ 40 BASE PART C: colon - SIGMOID POLYP AT 30 . 01 Diagnosis: Part A: SIGMOID POLYP @ 40: Tubulovillous adenoma. No high-grade dysplasia or malignancy identified. . Part B: SIGMOID POLYP @ 40 BASE: Colonic mucosa with no diagnostic alterations, including no evidence of neoplasia. . Part C: SIGMOID POLYP AT 30: 1. Colonic tissue with invasive adenocarcinoma, moderately differentiated. 2. No lymphovascular or perineural invasion identified. 3. Adenocarcinoma extends to within less than 1 mm of the cauterized biopsy edge. See comment and microscopic description. . Specimen Comments: The polyp consists mostly of the high grade dysplastic process, which among the center and deep aspects of the polyp comprise an invasive adenocarcinoma. No tumor budding is seen. The tumor extends to within less than 1 mm of the deep cauterized tissue edge, although it is not present at the edge in the sections examined. Clinical correlation and follow-up is recommended to ensure the lesion is entirely removed. . This case (part C) has also been reviewed by Dr. Jenny Echaavrria, who concurs with the diagnosis. These results were called to Dr. Pagan by Dr. Dunn on 05/11/2024 at 1130. STO 05/11/2024 1156 Local . 01 Electronically signed: . Etienne Dunn MD, Pathologist NPI- [id number] . 01 Gross description: . Part A: SIGMOID POLYP @ 40: Received in formalin is 1 fragment of child soft tissue measuring 1.1 x 1.0 x 1.3 cm. Specimen is sectioned and submitted in its entirety in 1 cassette. . Part B: SIGMOID POLYP @ 40 BASE: Received in formalin is 1 fragment(s) of child, soft tissue measuring 1.1 x 0.6 x 0.5 cm submitted entirely in 1 cassette(s) . Part C: SIGMOID POLYP AT 30: Received in formalin is 1 fragment(s) of child, soft tissue measuring 0.7 x 0.7 x 0.6 cm submitted entirely in 1 cassette(s) /CHANTAL 05/11/2024 1156 Local . 01 Microscopic: . IMMUNOHISTOCHEMISTRY TESTING FOR MISMATCH REPAIR PROTEINS: MLH1: Intact nuclear expression. MSH2: Intact nuclear expression. MSH6: Intact nuclear expression. PMS2: Intact nuclear expression. Background nonneoplastic tissue/internal control with intact nuclear expression. . INTERPRETATION: No loss of nuclear expression of MMR proteins: low probability of microsatellite instability-high (MSI-H)* . * There are exceptions to the above IHC interpretations. These results should not be considered in isolation, and clinical correlation with genetic counseling is recommended to assess the need for germline testing. . * This test was developed and the performance characteristics were validated by [facility] [employer]. It has not been cleared or approved by the Food and Drug Administration. . 01 Pathologist provided ICD-10: C18.7, D12.5 . 01 CPT . 750802, 307670, 589422, V22317, I25213 Specimen Comment: A courtesy copy of this report has been sent to [phone] Performed at: [address] [address], [place], [place] [id number] MD Etienne Dunn MD Phone: [phone]
[2024-05-06 12:08] VITALS: BP 139/68; PULSE 53; RESP 16; TEMP 36.1; O2SAT 98
--- NOTE | 2024-05-06 13:26 | P.HP_ITS ---
History of Present Illness History of Present Illness Date Patient Seen: 05/06/24 Time Patient Seen: 13:26 Chief complaint: Screening Colonoscopy Narrative: Goyo is a 58-year-old man here for his first colonoscopy. No family history of colon cancer. [facility] Medical History (Updated 05/06/24 @ 13:27 by Goyo Pagan MD) Elevated PSA Impaired glucose tolerance Liver cyst Aortic dissection, thoracoabdominal Wears glasses Tuberculosis Essential hypertension Surgical History S/P thoracic aortic aneurysm repair (09/12/20) Social History Smoking Status: Never smoker alcohol intake: never Meds Home Medications and Allergies Home Medications Medication Instructions Recorded Confirmed Type acetaminophen 325 mg tablet 650 mg PO Q6H PRN 10/12/20 02/06/24 History aspirin 81 mg tablet,delayed 81 mg PO DAILY 10/12/20 05/06/24 History release (Adult Low Dose Aspirin) lidocaine 4 % topical patch 1 patch topical DAILY PRN pain #15 10/12/20 02/06/24 Rx ea sennosides 8.6 mg tablet (Senna 8.6 mg PO DAILY PRN constipation 10/12/20 02/06/24 History Lax) sodium chloride 0.65 % nasal spray 2 spray intranasal Q2H PRN 10/12/20 02/06/24 History aerosol (Nasal [place] (sodium chloride)) potassium chloride 20 mEq 20 meq PO DAILY 02/05/21 02/06/24 History tablet,extended release prenat.vits,tracie,jqb-rmbi-zbrsy 1 tab PO DAILY 02/05/21 02/06/24 History rosuvastatin 10 mg tablet 10 mg PO DAILY 02/05/21 02/06/24 History amlodipine 10 mg tablet 10 mg PO DAILY 11/02/21 02/06/24 History hydrochlorothiazide 12.5 mg tablet 12.5 mg PO DAILY 11/02/21 05/06/24 History clonidine HCl 0.2 mg tablet 0.2 mg PO DAILY 02/06/24 05/06/24 History lisinopril 40 mg tablet 40 mg PO DAILY 02/06/24 05/06/24 History metoprolol succinate 100 mg 100 mg PO BID 02/06/24 05/06/24 History tablet,extended release 24 hr peg 3350-electrolytes 236 240 ml PO Q10M #4,000 mL 03/30/24 Rx gram-22.74 gram-6.74 gram-5.86 gram solution (Golytely) Allergies Allergy/AdvReac Type Severity Reaction Status Date / Time ciprofloxacin [From Cipro] AdvReac Severe dacron Verified 05/06/24 12:15 aortic graft, valsartan [From Diovan] AdvReac Intermediate increased Verified 05/06/24 12:15 HR, losartan okay Exam Vital Signs (past 8 hours): - 05/06/24 12:08 Temperature 97.0 F L Pulse Rate 53 L Respiratory Rate 16 Blood Pressure 139/68 Pulse Oximetry 98 Oxygen Delivery Method Room Air Oxygen Delivery Method Room Air Const General: No acute distress Resp Effort & Inspection: normal respiratory effort Assessment & Plan Assessment and plan (1) Colon cancer screening: Status: Acute Plan Colonoscopy Time-Based Coding :: [TOTAL MINUTES] spent with patient and on the chart (including review of chart, obtaining history, exam, reviewing outside data, placing orders, documenting exam and treatment plan, and counseling patient) on [DATE].
--- NOTE | 2024-05-06 14:02 | PM.OP.COLON ---
Operative Date/Time/Diagnoses Date of procedure: 05/06/24 Time of procedure: 14:02 Pre-op diagnosis: Colon cancer screening Post-op diagnosis: same Procedure & Clinicians Study performed: Colonoscopy Same procedure as scheduled: Yes Surgeon: Goyo Pagan Procedure Notes Procedure in detail: Surgeon: Goyo Pagan MD Anesthesia: Chelle Rubio CRNA Procedure: The patient was brought to the endoscopy suite, placed in left lateral decubitus position. The patient was connected to monitoring devices. A time-out was performed. Sedation was administered. Once the patient was adequately sedated, a digital rectal exam was performed and was normal. The scope was then inserted and advanced to the cecum where the appendiceal orifice was identified and photographed. The scope was then slowly withdrawn over greater than 6 minutes. The mucosa was thoroughly inspected. There was a 2 cm polyp on a stalk in the descending or sigmoid colon at 40 cm from the anal verge. It was removed with a hot snare. We then went back and took an extra section of the base polyp to make sure that it was completely excised. There was a 9 mm polyp in the sigmoid colon at 30 cm which was removed with a cold snare. The scope was retroflexed in the rectum. No other abnormalities were found. The scope was straightened and removed. The patient was awakened and brought to recovery. Scope withdrawal time: 16 minutes Sedation time: 24 minutes EBL: 2 mL Findings: 2 cm polyp on a stalk in the descending or sigmoid colon at 40 cm, 9 mm polyp in the sigmoid colon at 30 cm Post-procedure Disposition: PACU
[2024-05-06 14:03] VITALS: BP 104/57; PULSE 62; RESP 16; TEMP 36.2; O2SAT 92
[2024-05-06 14:08] VITALS: BP 102/60; PULSE 58; RESP 18; O2SAT 97
[2024-05-06 14:13] VITALS: BP 103/60; PULSE 60; RESP 12; TEMP 36.6; O2SAT 92
[2024-05-06 14:21] VITALS: BP 101/59; PULSE 63; RESP 16; O2SAT 94
== END 2024-05-06 14:35 | disposition home or self-care (01) ==
PROVIDERS: PCP Internal Medicine; Referring Provider Surgery; Visit Provider Surgery
PROC: 0DJD8ZZ Inspection of Lower Intestinal Tract, Via Natural or Artificial Opening Endoscopic (ICD-10-PCS; CPT 45378; principal; 2024-05-06 13:00)
DX: Z12.11 Encounter for screening for malignant neoplasm of colon (principal); C18.7 Malignant neoplasm of sigmoid colon; D12.5 Benign neoplasm of sigmoid colon
CPT/HCPCS: 45385; J2704

== ENCOUNTER → 2024-07-20 10:10 | Outpatient (CLI) | payer OTHER, SELFPAY ==
[2024-07-20 11:33] LABS: Prostate Specific Antigen 5.17 ng/mL (0.10-4.00)
== END ==
LOC: LAB 10:11
PROVIDERS: PCP Internal Medicine; Referring Provider Internal Medicine; Visit Provider Internal Medicine
DX: R97.20 Elevated prostate specific antigen [PSA] (principal)
CPT/HCPCS: 36415; 84153

== ENCOUNTER → 2024-09-23 12:27 | Outpatient (CLI) | payer OTHER, SELFPAY ==
[2024-09-23 14:26] LABS: Prostate Specific Antigen 4.88 ng/mL (0.10-4.00)
== END ==
PROVIDERS: PCP Internal Medicine; Referring Provider Internal Medicine; Visit Provider Internal Medicine
DX: R97.20 Elevated prostate specific antigen [PSA] (principal)
CPT/HCPCS: 36415; 84153

== ENCOUNTER → 2024-11-17 09:45 | Outpatient (CLI) | payer OTHER, SELFPAY ==
[2024-11-17 10:29] LABS: Hemoglobin A1C% w Est Avg Glu 5.3 % (4.0-6.0)
[2024-11-17 10:42] LABS: BUN Creatinine Ratio 22.4 (6-22); Blood Urea Nitrogen 22 mg/dL (9-20); Calcium 9.6 mg/dL (8.4-10.2); Carbon Dioxide 26 mmol/L (22-32); Chloride 103 mmol/L (98-107); Cholesterol 149 mg/dL (140-199); Estimated Glomerular Filt Rate > 60 mL/min (>60); Glucose 104 mg/dL (70-99); HDL Cholesterol 32 mg/dL (40-60); HEMOLYSIS < 15 (0-50); LDL Cholesterol Calculated 80 mg/dL (<100); Potassium 4.1 mmol/L (3.4-5.1); Sodium 139 mmol/L (137-145); Triglycerides 183 mg/dL (35-150)
== END ==
PROVIDERS: PCP Internal Medicine; Referring Provider Internal Medicine Interventional Cardiology; Visit Provider Internal Medicine Interventional Cardiology
DX: E11.9 Type 2 diabetes mellitus without complications (principal)
CPT/HCPCS: 36415; 80048; 80061; 83036

== ENCOUNTER → 2025-01-31 11:16 | Outpatient (CLI) | payer OTHER, SELFPAY ==
[2025-01-31 12:40] LABS: Hemoglobin A1C% w Est Avg Glu 5.6 % (4.0-6.0)
[2025-01-31 12:51] LABS: Uric Acid 9.2 mg/dL (3.5-8.5)
[2025-01-31 13:23] LABS: Prostate Specific Antigen 5.78 ng/mL (0.10-4.00)
== END ==
PROVIDERS: PCP Internal Medicine; Referring Provider Internal Medicine; Visit Provider Internal Medicine
DX: R97.20 Elevated prostate specific antigen [PSA] (principal); R73.02 Impaired glucose tolerance (oral); M10.9 Gout, unspecified
CPT/HCPCS: 36415; 83036; 84153; 84550

== ENCOUNTER → 2025-06-24 08:02 | Outpatient (CLI) | payer OTHER, SELFPAY ==
--- NOTE | 2025-06-24 08:03 | DI.ECHO.S_ITS ---
[facility] : : [address] : : [place] : : [id number] : : Phone: [phone] Echocardiogram Report + + :Name: RUSSELL KEATING Study Date: 06/24/2025 Height: 61 in : :[facility] ReadingLocation: Weight: 190 lb: : Gender: Male BSA: 1.8 m2 : :: 1965 Age: 60 yrs BP: 99/56 mmHg: :Reason For Study: ESSENTIAL HYPERTENSION : :Ordering Physician: : :MARSHALL LEMUS Performed By: Ab Wright : :Referring: MARSHALL LEMUS : + + Interpretation Summary Mild concentric left ventricular hypertrophy with ejection fraction 65-70%. The right ventricle is mild to moderately dilated. The right ventricular systolic function is normal. The left atrium is moderately dilated. The right atrium is moderate to severely dilated. Mild aortic valve sclerosis. Mild aortic regurgitation. The ascending aorta is mildly enlarged. The aortic arch is moderately enlarged. Procedure: A two-dimensional transthoracic echocardiogram with color flow and Doppler was performed. The study quality was technically adequate. There is no prior echocardiogram noted for this patient. The patient was in normal sinus rhythm during the exam. Left Ventricle: The left ventricle is normal in size. There is mild concentric left ventricular hypertrophy. There is no ventricular septal defect visualized. The ejection fraction is estimated to be 65-70%. There are no focal wall motion abnormalities. Diastolic parameters suggest probable normal left ventricular diastolic function and normal filling pressures. Right Ventricle: The right ventricle is mild to moderately dilated. The right ventricular systolic function is normal. Atria: The left atrium is moderately dilated. The right atrium is moderate to severely dilated. There is no Doppler evidence for an interatrial shunt. Mitral Valve: The mitral valve leaflets appear mildly thickened. The mitral valve leaflets appear to open well. There is no mitral regurgitation noted. Aortic Valve: The aortic valve is trileaflet. The aortic valve opens well. There is mild aortic valve sclerosis. There is mild aortic regurgitation. Tricuspid Valve: The tricuspid valve is not well visualized, but is grossly normal. There is a trace or physiologic amount of tricuspid regurgitation. Pulmonic Valve: The pulmonic valve is not well seen, but is grossly normal. There is no pulmonic valvular regurgitation. Great Vessels: The aortic root is mildly dilated. The ascending aorta is mildly enlarged. The aortic arch is moderately enlarged. The pulmonary artery is normal size. The IVC is of normal diameter and collapses less than 50% with a sniff. This suggests a right atrial pressure of 8 mm Hg. Pericardium/ Pleura There is no pericardial effusion. There is no pleural effusion. MMode/2D Measurements & Calculations LVIDd: 5.1 cm LVOT diam: 2.3 cm LVIDs: 3.4 cm Ao root diam: 3.9 cm FS: 33.1 % Aortic Jxn: 2.8 cm EPSS: 0.78 cm asc Aorta Diam: 3.7 cm IVSd: 1.3 cm Ao Arch Diam (Prox Trans): 3.6 cm LVPWd: 1.3 cm LV otney. diameter/BSA (cm/m^2): 2.7 LV sys. diameter/BSA (cm/m^2): 1.8 LA A2 area: 20.2 cm2 RA long axis: 5.2 cm LA A4 area: 27.6 cm2 RA area: 19.3 cm2 LA length (vol): 5.9 cm RA vol: 60.9 ml LA vol: 80.7 ml RA : 33.0 ml/m2 LA vol index: 43.6 ml/m2 IVC diam: 1.9 cm RVD1 (basal): 4.5 cm RVD2 (mid): 3.1 cm TAPSE: 2.0 cm Doppler Measurements & Calculations Ao V2 max: 95.6 cm/sec LVOT Max Raymundo: 90.5 cm/sec Ao V2 mean: 63.9 cm/sec LV V1 max P.3 mmHg Ao max P.7 mmHg LV V1 VTI: 20.9 cm Ao mean P.8 mmHg JULI(I,D): 4.0 cm2 Ao V2 VTI: 21.9 cm JULI(V,D): 4.0 cm2 sev ratio: 0.96 JULI indexed to BSA (cm^2/m^2): 2.2 MV E max raymundo: 67.8 cm/sec TR max raymundo: 227.2 cm/sec MV A max raymundo: 67.1 cm/sec TR max P.6 mmHg MV E/A: 1.0 PA V2 max: 122.0 cm/sec Med Peak E' Raymundo: 7.6 cm/sec PA V2 mean: 95.2 cm/sec E/E' med: 9.0 PA mean P.8 mmHg Lat Peak E' Raymundo: 11.2 cm/sec PA pr(Accel): 37.9 mmHg E/E' lat: 6.0 E/e' average: 7.5 MV dec time: 0.18 sec SV(LVOT): 87.3 ml Electronically signed by: Marshall frazier [place] Physician:06/26/2025 07:59 AM
== END ==
LOC: ECHO 08:02
PROVIDERS: PCP Internal Medicine; Referring Provider Internal Medicine Interventional Cardiology; Visit Provider Internal Medicine Interventional Cardiology
DX: I35.1 Nonrheumatic aortic (valve) insufficiency (principal); I10 Essential (primary) hypertension; I77.810 Thoracic aortic ectasia; Z98.890 Other specified postprocedural states
CPT/HCPCS: 93306

== ENCOUNTER → 2025-07-05 08:26 | Outpatient (CLI) | payer OTHER, SELFPAY ==
[2025-07-05 09:37] LABS: Hemoglobin A1C% w Est Avg Glu 6.0 % (4.0-6.0)
[2025-07-05 09:59] LABS: Alanine Aminotransferase 22 IU/L (<50); Albumin 4.5 g/dL (3.5-5.0); Albumin Globulin Ratio 1.6 (1.0-2.8); Alkaline Phosphatase 75 U/L (38-126); Blood Urea Nitrogen 18 mg/dL (9-20); Calcium 9.5 mg/dL (8.4-10.2); Carbon Dioxide 28 mmol/L (22-32); Chloride 104 mmol/L (98-107); Estimated Glomerular Filt Rate > 60 mL/min (>60); Globulin 2.9 g/dL (1.7-4.1); Glucose 105 mg/dL (70-99); HEMOLYSIS < 15 (0-50); Potassium 4.1 mmol/L (3.4-5.1); Sodium 142 mmol/L (137-145); Total Protein 7.4 g/dL (6.3-8.2); Uric Acid 5.9 mg/dL (3.5-8.5)
[2025-07-05 10:30] LABS: Prostate Specific Antigen 6.22 ng/mL (0.10-4.00)
== END ==
PROVIDERS: PCP Internal Medicine; Referring Provider Internal Medicine; Visit Provider Internal Medicine
DX: R97.20 Elevated prostate specific antigen [PSA] (principal); M10.9 Gout, unspecified; R73.02 Impaired glucose tolerance (oral)
CPT/HCPCS: 36415; 80053; 83036; 84153; 84550